=== PATIENT | female | born 1995 | race Caucasian/White ===

== ENCOUNTER → 2017-01-24 | Outpatient (CLI) | payer OTHER ==
[~2017-01-24] MED LIST: GADAVIST IV PRN
--- NOTE | 2017-01-24 09:52 | DIAGNOSTIC IMAGING REPORT ---
MRI OF THE BRAIN WITHOUT AND WITH IV CONTRAST CLINICAL HISTORY: R42 Postural dizziness with [id number] Transient vision dis dizziness. Mental status change. COMPARISON STUDY: No previous studies for comparison. TECHNIQUE: Utilizing a 1.5 Lisa magnet and dedicated coil, multiplanar, multiecho imaging of the brain was performed pre and postcontrast administration. IV administration of 8 mL of Gadavist contrast was uneventful. FINDINGS: Diffusion-weighted images show no evidence for an acute ischemic event. Signal characteristics of the cerebellar as well as cerebral hemispheres are within normal limits. Ventricular system is midline. There is no abnormal postcontrast enhancement. The sella and parasellar regions are unremarkable. IMPRESSION: Normal study. Electronically signed by: William Canales M.D. 01/24/2017 9:51 AM Dictated Date/Time: 01/24/2017 9:49 AM
--- NOTE | 2017-01-24 10:00 | DIAGNOSTIC IMAGING REPORT ---
MR ANGIOGRAM OF THE BRAIN CLINICAL HISTORY: Postural dizziness. Presyncope. COMPARISON STUDY: MRI of the brain performed concurrently on 01/24/2017. TECHNIQUE: 3-D [id number] MR angiography of the intracranial circulation is performed. 3-D tumble views are created and assessed. IV contrast was not administered for this examination. FINDINGS: The [place] is development likely complete. The internal carotid arteries are widely patent bilaterally, as are the anterior and middle cerebral arteries. The vertebrobasilar system and posterior cerebral arteries are widely patent. The vertebral arteries are codominant. There is no aneurysm, high-grade stenosis, or focal vessel cutoff seen throughout the intracranial circulation. The brain parenchyma is normal as visualized. IMPRESSION: Unremarkable MR angiogram of the brain. Electronically signed by: Ki Matthews M.D. 01/24/2017 9:59 AM Dictated Date/Time: 01/24/2017 9:50 AM
== END | disposition home or self-care (01) ==
LOC: C.MRI 08:11
PROVIDERS: ATTEND Psychiatry & Neurology Neurology
DX: H53.9 Unspecified visual disturbance (principal); R42 Dizziness and giddiness